=== PATIENT | male | born 1985 | race Caucasian/White ===

== ENCOUNTER 2017-08-07 21:48 | Emergency (ER) | payer OTHER ==
[2017-08-07] MEDS ORDERED: DEXAMETHASONE SOD PHOSPHATE 4 MG/ML 1ML VIAL ONE (21:58)
[2017-08-07] MEDS ORDERED: ACETAMINOPHEN-CODEINE ELIXIR 5 ML UDCUP ONE (21:59)
== END 2017-08-07 23:01 | disposition home or self-care (01) ==
LOC: EDH 21:48
DX: M94.0 Chondrocostal junction syndrome [Tietze] (principal); Z72.0 Tobacco use
CPT/HCPCS: 71045; 96372; 99283; J1100